=== PATIENT | male | born 1990 | race Hispanic/Latino ===

== ENCOUNTER 2021-05-16 08:13 | Emergency (ER) | payer SELFPAY | END 2021-05-16 10:35 | disposition home or self-care (01) | LOC: CSHERS 08:13 | DX: S63.502A Unspecified sprain of left wrist, initial encounter (principal); W01.0XXA Fall on same level from slipping, tripping and stumbling without subsequent striking against object, initial encounter ==

== ENCOUNTER 2024-12-21 23:31 | Emergency (ER) | payer SELFPAY ==
[2024-12-22 00:57] LABS: #Basophils 0.04 10x3/uL (0.0-0.2); #Eosinophils 0.12 10x3/uL (0.0-0.5); #Monocytes 0.75 10x3/uL (0.0-1.1); #Neutrophils 7.12 10x3/uL (1.5-8.4); %Basophils 0.4 % (0.0-2.0); %Eosinophils 1.2 % (0.0-6.0); %Lymphocytes 18.9 % (18.0-47.0); %Monocytes 7.5 % (0.0-10.0); %Neutrophils 71.7 % (40.0-75.0); Hematocrit 46.9 % (38.8-50.0); Hemoglobin 16.0 g/dL (13.5-17.5); Mean Corpuscular Hemoglobin 31.3 pg (27.0-33.0); Mean Corpuscular Volume 91.6 fL (81.2-95.1); Platelet Count 259 10x3/uL (150-450); Red Blood Cell (RBC) Count 5.12 10x6/uL (4.32-5.72); White Blood Cell (WBC) Count 9.94 10x3/uL (3.5-10.5)
[2024-12-22 01:10] LABS: Anion Gap 14 mmol/L (10-20); BUN (Urea Nitrogen) 8 mg/dL (8.9-20.6); Calc. Creatinine Clearance 0 mL/min (70-130); Calcium 9.0 mg/dL (7.8-10.44); Carbon Dioxide 24 mmol/L (22-29); Chloride 107 mmol/L (98-107); Glucose 192 mg/dL (70-105); Potassium 3.9 mmol/L (3.5-5.1); Sodium 141 mmol/L (136-145)
[2024-12-22 01:12] LABS: Acetaminophen Less than 10 mcg/mL (Less than 10); Salicylate Less than 8.0 mg/dL (Less than 8.0)
[2024-12-22 01:24] LABS: Troponin I Less than 0.010 ng/mL (< 0.028)
== END 2024-12-22 03:08 | disposition home or self-care (01) ==
LOC: CSHERS 23:31
DX: I16.1 Hypertensive emergency (principal)
CPT/HCPCS: 80048; 80307; 84484; 85025; 93005; 96374